=== PATIENT | male | born 1965 | race African-American/Black ===

== ENCOUNTER 2022-06-08 10:27 | Emergency (ER) | payer OTHER ==
[2022-06-08 10:50] VITALS: BP 146/84; PULSE 64; RESP 16; TEMP 97.4; BMI 25.1
[2022-06-08] MEDS ORDERED: TETRACAINE 0.5% HCL 0.6ML DROPPER.BOTTLE OD ONE (11:26)
[2022-06-08] MEDS ORDERED: FLUORESCEIN NA 1 EA STRIP OD ONE (11:34)
[2022-06-08] MEDS ORDERED: TETRACAINE 0.5% OPHTH SOLN 2 ML BOTTLE ONE (11:38)
[2022-06-08] MEDS ORDERED: FLUORESCEIN NA 1 EA STRIP ONE (11:38)
[2022-06-08] MEDS ORDERED: KETOROLAC TROMETHAMINE 30 MG/1 ML VIAL ONE (13:06)
[2022-06-08] MEDS ORDERED: KETOROLAC TROMETHAMINE 30 MG/1 ML VIAL IM ONE (13:06)
== END 2022-06-08 13:19 | disposition home or self-care (01) ==
LOC: JER 10:27
PROC: 3E023GC Introduction of Other Therapeutic Substance into Muscle, Percutaneous Approach (ICD-10-PCS; principal; 2022-06-08)
DX: S05.01XA Injury of conjunctiva and corneal abrasion without foreign body, right eye, initial encounter (principal); W22.8XXA Striking against or struck by other objects, initial encounter
CPT/HCPCS: 99284-25

== ENCOUNTER 2023-06-10 11:44 | Emergency (ER) | payer OTHER ==
[2023-06-10 11:53] VITALS: BP 140/66; PULSE 63; RESP 18; TEMP 97.9; BMI 24.3
[2023-06-10] MEDS ORDERED: ACETAMINOPHEN 1000 MG/100 ML BAG IVPB ONE (12:37)
[2023-06-10] MEDS: ALBUTEROL SO4 2.5/IPRATROPIUM 0.5 INH SOL 3 ML VIAL.NEB. NEB SCH ×4 (13:00→14:18)
[2023-06-10] MEDS ORDERED: ACETAMINOPHEN INJECTION 100 ML IVPB ONE (13:05)
[2023-06-10 13:35] LABS: BASO % 0.7 % (0-2.0); EOS % 1.7 % (0-4.5); HEMATOCRIT 44.4 % (35.4-49); HEMOGLOBIN 14.9 GM/dL (11.7-16.9); LYMPH % 53.9 % (8-40); MCH 28.3 pg (25.7-33.7); MCHC 33.5 g/dl (32.0-35.9); MEAN CELL VOLUME 84.6 fl (80-96); MEAN PLT VOLUME 7.8 fl (7.5-11.1); MONO % 8.2 % (3.8-10.2); NEUT % 35.5 % (42.8-82.8); PLATELET COUNT 219 10^3/uL (134-434); RBC 5.25 M/mm3 (4.00-5.60); RDW 13.5 % (11.9-15.9); WHITE BLOOD COUNT 4.8 K/mm3 (4.0-10.0)
[2023-06-10 13:42] LABS: INR 0.97 (0.83-1.09); PROTHROMBIN TIME (PATIENT) 11.3 SEC (9.7-13.0)
[2023-06-10 13:45] LABS: ACTIVATED PTT 31.1 SECONDS (25.2-36.5)
[2023-06-10 13:54] LABS: POTASSIUM 3.9 mmol/L (3.5-5.1)
[2023-06-10 13:59] LABS: ALBUMIN 3.9 g/dl (3.4-5.0); BLOOD UREA NITROGEN 12.2 mg/dL (7-18); CALCIUM 9.1 mg/dL (8.5-10.1)
[2023-06-10 14:02] LABS: CREATININE 1.1 mg/dL (0.55-1.3)
[2023-06-10 14:04] LABS: BILIRUBIN,TOTAL 0.6 mg/dL (0.2-1)
== END 2023-06-10 15:38 | disposition home or self-care (01) ==
LOC: JER 11:44
PROC: 3E033NZ Introduction of Analgesics, Hypnotics, Sedatives into Peripheral Vein, Percutaneous Approach (ICD-10-PCS; principal; 2023-06-10)
PROC: 3E0F7GC Introduction of Other Therapeutic Substance into Respiratory Tract, Via Natural or Artificial Opening (ICD-10-PCS; 2023-06-10)
DX: J32.9 Chronic sinusitis, unspecified (principal); R09.81 Nasal congestion; R06.02 Shortness of breath; M54.6 Pain in thoracic spine; R19.7 Diarrhea, unspecified; M54.2 Cervicalgia; J06.9 Acute upper respiratory infection, unspecified; Z20.822 Contact with and (suspected) exposure to COVID-19
CPT/HCPCS: 0241U-QW; 36415; 71045-TC-FY; 80053; 85025; 85610; 85730; 93005; 93010; 99285-25

== ENCOUNTER 2023-11-26 09:12 | Emergency (ER) | payer OTHER ==
[2023-11-26 09:42] VITALS: BP 129/74; PULSE 69; RESP 18; TEMP 98.6; BMI 24.3
[2023-11-26] MEDS ORDERED: ACETAMINOPHEN 500 MG TABLET (FP) ONE (09:52)
[2023-11-26] MEDS: ACETAMINOPHEN 500 MG TABLET (FP) PO ONE (10:02)
[2023-11-26 10:07] LABS: EOS % 0.6 % (0-4.5); HEMATOCRIT 45.4 % (35.4-49); HEMOGLOBIN 15.6 GM/dL (11.7-16.9); LYMPH % 33.8 % (8-40); MCHC 34.4 g/dl (32.0-35.9); MEAN CELL VOLUME 87.2 fl (80-96); MEAN PLT VOLUME 7.6 fl (7.5-11.1); MONO % 8.5 % (3.8-10.2); NEUT % 56.1 % (42.8-82.8); PLATELET COUNT 250 10^3/uL (134-434); RBC 5.21 M/mm3 (4.00-5.60); RDW 13.6 % (11.9-15.9); WHITE BLOOD COUNT 5.6 K/mm3 (4.0-10.0)
[2023-11-26 10:25] LABS: POTASSIUM 3.9 mmol/L (3.5-5.1)
[2023-11-26 10:27] LABS: CALCIUM 9.1 mg/dL (8.5-10.1)
[2023-11-26 10:28] LABS: BLOOD UREA NITROGEN 13.8 mg/dL (7-18)
[2023-11-26 10:31] LABS: CREATININE 0.9 mg/dL (0.55-1.3)
[2023-11-26 10:32] LABS: BILIRUBIN,TOTAL 0.6 mg/dL (0.2-1); TOT PROT 7.5 g/dl (6.4-8.2)
[2023-11-26] MEDS ORDERED: IBUPROFEN 600 MG TABLET (FP) PO ONE (11:16)
[2023-11-26] MEDS: IBUPROFEN 600 MG TABLET (FP) PO ONE (11:21)
== END 2023-11-26 11:21 | disposition home or self-care (01) ==
LOC: JER 09:12
DX: R05.1 Acute cough (principal); R09.82 Postnasal drip; R09.81 Nasal congestion; M54.6 Pain in thoracic spine; J02.9 Acute pharyngitis, unspecified
CPT/HCPCS: 36415; 71046-TC-FY; 80053; 85025; 99283-25